=== PATIENT | female | born 1970 | race Caucasian/White ===

== ENCOUNTER 2019-01-12 05:45 | Day surgery (SDC) | payer BC ==
[~2019-01-12 05:45] MED LIST: Buffered Lidocaine 1% SYRIN* 1 ML/SYRINGE INTRADERM ONE
[2019-01-12] MEDS ORDERED: Famotidine IV* 10 MG/ML 2 ML (20 mg) IV ONE (06:00)
[2019-01-12] MEDS ORDERED: Lactated Ringers 1000 ML Bag* 1,000 ML IV SCH (06:00)
[2019-01-12] MEDS ORDERED: Dexamethasone IV* 4 MG/ML 1 ML (4 MG) IV SLOW PU ONE (06:00)
[2019-01-12] MEDS ORDERED: Heparin VIAL(*) 5000 UNITS/ML VIAL (FIVE THOUSAND) ONE (06:18)
[2019-01-12] MEDS ORDERED: ceFAZolin 2 GM in NS PREMIX(*) 2 GM/100 ML BAG IVPB ONE (06:19)
[2019-01-12] MEDS ORDERED: Scopolamine 1.5 mg* PATCH ONE (06:19)
[2019-01-12] MEDS ORDERED: Ondansetron INJ* 2 MG/ML VIAL ONE ×2 (06:19→11:34)
[2019-01-12] MEDS ORDERED: Dexamethasone IV* 4 MG/ML 1 ML (4 MG) ONE (06:19)
[2019-01-12] MEDS ORDERED: Famotidine IV* 10 MG/ML 2 ML (20 mg) ONE (06:19)
[2019-01-12] MEDS ORDERED: Bupivacaine 0.25% SDV PF* 10 ML VIAL INJ ONE (06:47)
[2019-01-12] MEDS ORDERED: Lidocain 1% EPI 1:100,000 * 30 ML MDV ONE ×2 (06:47→07:24)
[2019-01-12] MEDS ORDERED: Midazolam* 1 MG/ML 5 ML VIAL (5 MG) ONE (07:17)
[2019-01-12] MEDS ORDERED: fentaNYL* 50 MCG/ML 5 ML VIAL (250 MCG VIAL) ONE (07:17)
[2019-01-12] MEDS ORDERED: Rocuronium* 10 MG/ML VIAL ONE (07:17)
[2019-01-12] MEDS ORDERED: Lidocaine 2% PF * 5 ML VIAL ONE (07:18)
[2019-01-12] MEDS ORDERED: Propofol* 10 MG/ML 20 ML BTL ONE (07:18)
[2019-01-12] MEDS ORDERED: Acetaminophen TAB* 325 MG PO PRN (07:29)
[2019-01-12] MEDS ORDERED: HYDROcodone/ACETAMIN 5-325 MG* 1 TAB PO PRN (07:29)
[2019-01-12] MEDS ORDERED: DiMENhydriNATE IV* 50 MG/ML VIAL IV PUSH PRN (07:29)
[2019-01-12] MEDS ORDERED: Naloxone* 0.4 MG/ML 1 ML VIAL IV PRN (07:29)
[2019-01-12] MEDS ORDERED: Ketorolac INJ* 30 MG/ML 1 ML VIAL IV PRN (07:29)
[2019-01-12] MEDS ORDERED: Metoclopramide IV* 5 MG/ML 2 ML VIAL ONE (08:46)
[2019-01-12] MEDS ORDERED: Methylene Blue 0.5 %* 50 MG/10 ML AMP IV ONE (09:56)
[2019-01-12] MEDS ORDERED: ceFAZolin VIAL(*) VIAL ONE (11:46)
[2019-01-12] MEDS ORDERED: Ketorolac INJ* 30 MG/ML 1 ML VIAL ONE (12:02)
[2019-01-12] MEDS ORDERED: fentaNYL* 50 MCG/ML 2 ML VIAL (100 MCG VIAL) ONE ×3 (12:12→13:30)
[2019-01-12] MEDS: fentaNYL* 50 MCG/ML 2 ML VIAL (100 MCG VIAL) IV PRN ×5 (12:13→13:31)
[2019-01-12 13:19] VITALS: BP 125/95
[2019-01-12] MEDS ORDERED: HYDROcodone/ACETAMIN 5-325 MG* 1 TAB ONE (13:30)
== END 2019-01-12 13:53 | disposition home or self-care (01) ==
LOC: OR 05:45
PROVIDERS: ATTEND Plastic Surgery
DX: N62 Hypertrophy of breast (principal); Z87.891 Personal history of nicotine dependence; Z85.41 Personal history of malignant neoplasm of cervix uteri; M54.5 Low back pain
CPT/HCPCS: 88300; 88305; A9270-GY; A9272-GY; J0690; J1100; J1644; J1885; J2250; J2405; J2704; J2765; J3010; J3490

== ENCOUNTER 2019-12-20 16:10 | Emergency (ER) | payer BC ==
[2019-12-20 18:27] VITALS: BP 151/86
--- NOTE | 2019-12-20 18:28 | UC ---
Hand/Wrist HPI - HPI Summary HPI Summary: 49-year-old female presenting with left hand and thumb pain 2 days. Patient states that she was about to fall and put her hand behind her back because she has a bad back and ended up falling onto her hand. Notes swelling and decreased thumb flexion worsened since time of injury. Denies numbness and tingling. Has been icing and elevating. 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 - History Of Current Complaint Stated Complaint: LEFT HAND INJURY Hx Obtained From: Patient Pain Intensity: 7 - Allergies/Home Medications Allergies/Adverse Reactions: Allergies Allergy/AdvReac Type Severity Reaction Status Date / Time Sulfa (Sulfonamide Allergy Vomiting Verified 12/20/19 18:27 Antibiotics) Home Medications: Home Medications Hydrocodone/Acetaminophen [Hydrocodone/Acetaminophen 5-325 mg] 1 tab PO Q12HR PRN 12/20/19 [History Confirmed 12/20/19] Ondansetron [Ondansetron Odt] 4 mg PO DAILY 12/20/19 [History Confirmed 12/20/19 ] PMH/Surg Hx/FS Hx/Imm Hx - Surgical History Surgical History: Yes Surgery Procedure, Year, and Place: LEEP PROCEDURE JUN, hysterectomy 09/08, breast implants 08/2012. - Family History Known Family History: Positive: Other - no hx of inflammatory bowel disease or colon CA Family History: no FHx of Ulcerative Colitis - Social History Alcohol Use: Rare Alcohol Amount: 10/27/2018 2 DRINKS Substance Use Type: None Smoking Status (MU): Former Smoker Type: eCigarettes Amount Used/How Often: 1PPD 20 YRS Have You Smoked in the Last Year: No When Did the Patient Quit Smoking/Using Tobacco: 2010 Review of Systems All Other Systems Reviewed And Are Negative: No Constitutional: Positive: Negative Skin: Positive: Bruising - left hand Respiratory: Positive: Negative Cardiovascular: Positive: Negative Gastrointestinal: Positive: Negative Musculoskeletal: Positive: Arthralgia - L hand and thumb, Decreased ROM - L thumb flexion, Edema - left hand Neurological/Mental Status: Positive: Negative. Negative: Paresthesia, Numbness Physical Exam - Summary Physical Exam Summary: Vital Signs Reviewed: Yes A+Ox3, no distress Eyes: Conjunctiva Clear ENT: Hearing grossly normal neck: supple Respiratory: Positive: No respiratory distress, No accessory muscle use Cardiovascular: skin color reflect adequate perfusion Musculoskeletal Exam: +TTP of PIP joint of left thumb and 2nd metacarpal. edema and mild ecchymosis noted over 2nd metacarpal and base of left thumb, no snuffbox tenderness. sensation grossly intact, strong radial pulse Neurological: Positive: Alert, ambulatory without difficulty Psychological: Positive: age appropriate behavior Skin: Positive: see above Vital Signs: Initial Vital Signs Temp 99.5 F 12/20/19 18:22 Pulse 73 12/20/19 18:22 Resp 14 12/20/19 18:22 BP 151/86 12/20/19 18:22 Pulse Ox 100 12/20/19 18:22 Diagnostics - Radiology left hand Radiology Interpretation Completed By: Radiologist Summary of Radiographic Findings: neg fx Hand/Wrist Course/Dx - Course Course Of Treatment: Discussed initial negative read of radiographs with patient and informed her that she would be notified with any abnormalities found on final report in the morning. Instructed to continue with RICE and provided with thumb spica splint. Instructed to follow up with ortho within next 1-2 weeks for reevaluation. Patient voiced understanding and agreed with treatment plan. - Differential Dx/Diagnosis Provider Diagnosis: Contusion of hand, left, Contusion of thumb, left Discharge ED - Sign-Out/Discharge Documenting (check all that apply): Patient Departure All imaging exams completed and their final reports reviewed: No - Discharge Plan Condition: Stable Disposition: HOME Patient Education Materials: Contusion in Adults (ED) Forms: *Work Release Referrals: Jorge Wright MD [Primary Care Provider] - Naye Hernandez MD [Medical Doctor] - 1 Week Additional Instructions: As discussed, your radiograph was reviewed by the provider that treated you tonight. It will be read by a radiologist tomorrow morning. If there is a finding other than that discussed with you today, you will receive a call from a care provider. Rest, ice, elevate, and use the splint to help alleviate pain and swelling. You may also take over the counter pain medications as directed. Follow up with the orthopedics referral listed below within 1 week for reevaluation of injury. - Billing Disposition and Condition Condition: STABLE Disposition: Home - Attestation Statements Provider Attestation: I was available for consult. This patient was seen by the SHANT. The patient was not presented to, seen by, or examined by me. -Kelin
--- NOTE | 2019-12-21 07:16 | UC ---
- Progress Note Progress Note: xray report left hand : IMPRESSION: SOFT TISSUE SWELLING, NO FRACTURE IS SEEN. IF THE PATIENT'S SYMPTOMS PERSIST RECOMMEND FOLLOW-UP IMAGING. Course/Dx - Diagnoses Provider Diagnoses: Contusion of hand, left, Contusion of thumb, left Discharge ED - Sign-Out/Discharge Documenting (check all that apply): Patient Departure All imaging exams completed and their final reports reviewed: Yes - Discharge Plan Condition: Stable Disposition: HOME Patient Education Materials: Contusion in Adults (ED) Forms: *Work Release Referrals: Jorge Wright MD [Primary Care Provider] - Naye Hernandez MD [Medical Doctor] - 1 Week Additional Instructions: As discussed, your radiograph was reviewed by the provider that treated you tonight. It will be read by a radiologist tomorrow morning. If there is a finding other than that discussed with you today, you will receive a call from a care provider. Rest, ice, elevate, and use the splint to help alleviate pain and swelling. You may also take over the counter pain medications as directed. Follow up with the orthopedics referral listed below within 1 week for reevaluation of injury. - Billing Disposition and Condition Condition: STABLE Disposition: Home
--- NOTE | 2019-12-21 11:02 | UC ---
Course/Dx - Diagnoses Provider Diagnoses: Contusion of hand, left, Contusion of thumb, left Discharge ED - Sign-Out/Discharge Documenting (check all that apply): Patient Departure All imaging exams completed and their final reports reviewed: Yes - Discharge Plan Condition: Stable Disposition: HOME Patient Education Materials: Contusion in Adults (ED) Forms: *Work Release Referrals: Jorge Wright MD [Primary Care Provider] - Naye Hernandez MD [Medical Doctor] - 1 Week Additional Instructions: As discussed, your radiograph was reviewed by the provider that treated you tonight. It will be read by a radiologist tomorrow morning. If there is a finding other than that discussed with you today, you will receive a call from a care provider. Rest, ice, elevate, and use the splint to help alleviate pain and swelling. You may also take over the counter pain medications as directed. Follow up with the orthopedics referral listed below within 1 week for reevaluation of injury. - Billing Disposition and Condition Condition: STABLE Disposition: Home
== END 2019-12-20 19:20 | disposition home or self-care (01) ==
LOC: UCCORT 16:10
DX: S60.222A Contusion of left hand, initial encounter (principal); S60.012A Contusion of left thumb without damage to nail, initial encounter; Z88.2 Allergy status to sulfonamides; Z87.891 Personal history of nicotine dependence; W19.XXXA Unspecified fall, initial encounter; Y92.9 Unspecified place or not applicable
CPT/HCPCS: 99212; G0463